=== PATIENT | female | born 2000 | race Caucasian/White ===

== ENCOUNTER 2025-03-20 00:14 | Emergency (ER) | payer OTHER, SELFPAY ==
--- NOTE | 2025-03-20 | ECG_ITS ---
Test Reason : dizziness Blood Pressure : */* mmHG Vent. Rate : 99 BPM Atrial Rate : 99 BPM P-R Int : 162 ms QRS Dur : 82 ms QT Int : 322 ms P-R-T Axes : 47 71 45 degrees QTcB Int : 413 ms Normal sinus rhythm Normal ECG No previous ECGs available Referred By: Generic ED Physician Electronically Signed By: MEENU JONES
[2025-03-20 00:19] VITALS: BP 132/84; PULSE 100; O2SAT 99
[2025-03-20 00:27] VITALS: BP 110/59; PULSE 99; RESP 20; TEMP 37.4; O2SAT 100; BMI 26.2
--- NOTE | 2025-03-20 00:35 | ED.SOB ---
HPI - SOB/Dyspnea General Chief Complaint: General Medical Stated Complaint: SOB Time Seen by Provider: 03/20/25 00:34 Source: patient Mode of arrival: ambulatory Limitations: no limitations History of Present Illness ED Provider: HPI Narrative: Patient otherwise healthy been working outside all day today in heat comes here with weakness nausea dizziness short of breath tiredness shivering denies any cough or cold symptoms also patient has had tattoo on her right forearm 2 days ago it is little erythematous and hot Related Data Previous Rx's ?Medication ?Instructions ?Recorded cefuroxime axetil 500 mg tablet 500 mg PO BID 7 days #14 tabs 03/20/25 ondansetron 4 mg disintegrating 4 mg PO Q6-8H PRN nausea and 03/20/25 tablet vomiting #7 tabs Allergies Allergy/AdvReac Type Severity Reaction Status Date / Time No Known Allergies Allergy Verified 03/20/25 00:34 Review of Systems Review of Systems: Yes all other systems are reviewed and are negative [facility] Social History Social History Smoked in Last 30 Days: No Use of substances other than those prescribed or required for medical reasons: No Advance Directives: No Advance Directives Information Provided: Yes Patient : No Physical Exam Vital Signs: Vital Signs: Last Vital Signs Temp 99.3 F 03/20/25 06:00 Pulse 92 03/20/25 06:00 Resp 14 03/20/25 06:00 BP 98/47 L 03/20/25 06:00 Pulse Ox 99 03/20/25 06:00 O2 Del Method Room Air 03/20/25 06:00 Oxygen Flow Rate 1 03/20/25 00:27 BMI result Body Mass Index 26.2 Appearance: Alert. Oriented X3. No acute distress. Eyes: PERRLA, No Nystagmus ENT: Pharynx normal. Oral Mucosa moist Neck: Normal inspection. Neck supple. CVS: Normal heart rate and rhythm. Pulses normal. Respiratory: No respiratory distress. Equal air entry bilateral, no wheezing/rales/rhonchi Abdomen: Soft and nontender. Bowel sounds are present, no mass palpable, no CVA tenderness Skin: Skin warm and dry. Right forearm with tattoos and erythema local no exudates no open woundsr. Normal skin turgor. Extremities: No lower extremity edema. No calf tenderness Neuro: Oriented X 3. No motor deficit. No sensory deficit.No cerebellar signs , cranial nerves II-XII intact Medications Administered Discontinued Medications Generic Name Dose Route Start Last Admin Trade Name Valerie PRN Reason Stop Dose Admin Acetaminophen 650 mg 03/20/25 01:13 03/20/25 01:17 Acetaminophen 325 Mg Tablet PO 03/20/25 01:14 650 mg ONCE ONE Administration Ceftriaxone Sodium 1 gm 03/20/25 03:27 03/20/25 03:48 Ceftriaxone Sodium 1 Gm Vial IVPUSH 03/20/25 03:28 1 gm ONCE ONE Administration Sodium Chloride 1,000 mls @ 999 mls/hr 03/20/25 01:04 03/20/25 02:31 Ns IV 03/20/25 02:04 Infused .Q1H1M ONE Infusion Sodium Chloride 1,000 mls @ 999 mls/hr 03/20/25 03:27 03/20/25 04:56 Ns IV 03/20/25 04:27 Infused .Q1H1M ONE Infusion Ondansetron HCl 4 mg 03/20/25 02:38 03/20/25 02:44 Ondansetron Hcl 4 Mg/2 Ml Vial IVPUSH 03/20/25 02:39 4 mg ONCE ONE Administration Medical Decision Making Medical Decision Making [facility] [place] Narrative: Patient's symptoms likely from heat exhaustion will give IV fluids check CPK other labs are normal Patient's lab showed elevated CPK of 619 urine showed WBCs also patient has tattoo on the right forearm which seems to slightly warmer will give IV Rocephin 2 L of IV fluids Lab Data [facility] [place] Lab Attestation statement: I reviewed the patient's lab results. 03/20/25 00:48 03/20/25 00:48 Labs: Lab Results 03/20/25 03/20/25 Range/Units 00:48 02:59 WBC 10.7 (4.8-10.8) X10*3/uL RBC 4.20 (4.20-5.50) X10*6/uL Hgb 13.6 (12.0-16.0) g/dl Hct 37.5 (37.0-47.0) % MCV 89.3 (80.0-98.0) fL MCH 32.4 (27.0-33.0) pg MCHC 36.3 H (31.0-35.0) g/dl RDW 10.6 L (11.0-16.0) % Plt Count 138 L (160-400) X10*3/uL MPV 10.4 (9.4-12.3) fL Immature Gran % (Auto) 0.4 (0.0-0.4) % Neut % (Auto) 94.1 H (45-73) % Lymph % (Auto) 2.2 L (20-40) % [place] % (Auto) 2.9 (2-11) % Eos % (Auto) 0.2 (0-4) % Baso % (Auto) 0.2 (0-2) % Lymph # (Auto) 0.2 L (1.2-4.9) X10*3/uL [place] # (Auto) 0.3 (0.1-1.2) X10*3/uL Eos # (Auto) 0.0 (0.0-0.4) X10*3/uL Baso # (Auto) 0.0 (0.0-0.2) X10*3/uL Abs Immat Gran (auto) 0.04 H (0.00-0.03) X10*3/uL Absolute Neuts (auto) 10.1 H (2.0-8.3) x10*3/uL Absolute Nucleated RBC 0.000 (0.0-0.012) X10*3/uL Nucleated RBC % (auto) 0.0 (0.0-0.2) /100WBC Smear Tech's Comments VERIFIED Sodium 141 (135-145) mmol/L Potassium 3.4 (3.3-5.1) mmol/L Chloride 107 (96-108) mmol/L Carbon Dioxide 24 (22-29) mmol/L Anion Gap 13 (12-20) BUN 20 H (9-16) mg/dL Creatinine 1.13 (0.5-1.4) mg/dL Estim Creat Clear Calc 92.0 Estimated GFR 59 Random Glucose 110 (60-115) mg/dL Calcium 9.5 (8.4-10.2) mg/dL Total Bilirubin 0.5 (0.0-1.0) mg/dL AST 41 H (5-31) U/L ALT 38 H (0-31) U/L Alkaline Phosphatase 51 (39-117) U/L Total Creatine Kinase 619 H (26-140) U/L Total Protein 7.0 (6.5-8.0) g/dL Albumin 4.4 (3.5-5.0) g/dL Lipase 24 (8-78) U/L Urine Color Yellow Urine Appearance Clear Urine pH >= 9.0 (5.0-9.0) Ur Specific [place] 1.025 (1.005-1.025) Urine Protein 30 (1+) H (Neg-Trace) mg/dL Urine Glucose (UA) Negative (Negative) mg/dL Urine Ketones 15 (Negative) mg/dL Urine Blood Negative (Negative) Urine Nitrite Negative (Negative) Ur Leukocyte Esterase Small (1+) H (Negative) Urine RBC 0-2 (0-2) /HPF Urine WBC 11-20 H (0-5) /HPF Ur Squamous Epith Cells 0-2 (0-2) /HPF Urine Bacteria 1+ (None Seen) Hyaline Casts 0-2 (0-2) /LPF Influenza Type A (PCR) NEGATIVE (Negative) Influenza Type B (PCR) NEGATIVE (Negative) RSV RNA Qual (PCR) NEGATIVE (Negative) SARS-CoV-2 RNA (RT-PCR) NEGATIVE (Negative) Discharge Plan Discharge Clinical Impression: Heat exhaustion, UTI (urinary tract infection), Cellulitis of right forearm Patient Disposition: Home, Self-Care Instructions: Urinary Tract Infection in Women (DC), Cellulitis (ED), Heat Exhaustion (ED) Additional Instructions: Drink plenty of fluids avoid staying in heat Take antibiotics as prescribed Medicine for nausea as prescribed Prescriptions: New cefuroxime axetil 500 mg tablet 500 mg PO BID 7 Days Qty: 14 0RF ondansetron 4 mg tablet,disintegrating 4 mg PO Q6-8H PRN (Reason: nausea and vomiting) Qty: 7 0RF Stand Alone Forms: Work/School Release Interventions: ED Discharge Assessment Last Done: 03/20/25 06:00 Discharge Date/Time: 03/20/25 06:12 Print Language: Latvian
[2025-03-20 00:55] VITALS: BP 110/59; PULSE 99; RESP 20; TEMP 37.4; O2SAT 100
[2025-03-20 00:55] LABS: Basophils Percent Auto 0.2 % (0-2); Eosinophils Percent Auto 0.2 % (0-4); Hematocrit 37.5 % (37.0-47.0); Hemoglobin 13.6 g/dl (12.0-16.0); Imm Gran Abs Auto 0.04 X10*3/uL (0.00-0.03); Imm Gran Pct Auto 0.4 % (0.0-0.4); Lymphocytes Absolute Auto 0.2 X10*3/uL (1.2-4.9); Lymphocytes Percent Auto 2.2 % (20-40); MANUAL DIFF FLAG SCAN; Mean Corpuscular HGB Conc 36.3 g/dl (31.0-35.0); Mean Corpuscular Hemoglobin 32.4 pg (27.0-33.0); Mean Corpuscular Volume 89.3 fL (80.0-98.0); Mean Platelet Volume 10.4 fL (9.4-12.3); Monocytes Absolute Auto 0.3 X10*3/uL (0.1-1.2); Monocytes Percent Auto 2.9 % (2-11); Neutrophils Absolute Auto 10.1 x10*3/uL (2.0-8.3); Neutrophils Percent Auto 94.1 % (45-73); Platelet Count 138 X10*3/uL (160-400); Red Cell Distribution Width 10.6 % (11.0-16.0); SCAN SMEAR FLAG 1; White Blood Count 10.7 X10*3/uL (4.8-10.8)
[2025-03-20] MEDS: 0.9 % Sodium Chloride 1,000 ML 999 ML IV ×2 (01:12→03:47)
[2025-03-20] MEDS: Acetaminophen 325 MG TABLET 650 MG PO (01:17)
[2025-03-20 01:19] LABS: Alanine Aminotransferase 38 U/L (0-31); Albumin Level 4.4 g/dL (3.5-5.0); Alkaline Phosphatase 51 U/L (39-117); Anion Gap 13 (12-20); Aspartate Amino Transferase 41 U/L (5-31); Bilirubin Total 0.5 mg/dL (0.0-1.0); Blood Urea Nitrogen 20 mg/dL (9-16); Calcium 9.5 mg/dL (8.4-10.2); Carbon Dioxide 24 mmol/L (22-29); Chloride 107 mmol/L (96-108); Estimated Glomerular Filt Rate 59; Glucose Random 110 mg/dL (60-115); Lipase 24 U/L (8-78); Potassium 3.4 mmol/L (3.3-5.1); Sodium 141 mmol/L (135-145)
[2025-03-20 01:31] LABS: Influenza A PCR NEGATIVE (Negative); Influenza B PCR NEGATIVE (Negative); Resp Syncy Virus RNA Qual PCR NEGATIVE (Negative); SARS COV2 PCR INHOUSE NEGATIVE (Negative)
[2025-03-20] MEDS: ondansetron HCL 4 MG/2 ML VIAL IVPUSH (02:44)
[2025-03-20 03:10] LABS: SLIDE REVIEW VERIFIED
--- NOTE | 2025-03-20 03:10 | PC.NURSE ---
pt vomited, feels better now
[2025-03-20 03:16] LABS: Appearance Urine Clear; Color Urine Yellow; Glucose Urine UA Negative (Negative); Leukocyte Esterase Urine Small (1+) (Negative); Nitrite Urine Negative (Negative); PH >= 9.0 (5.0-9.0); Specific Gravity - Urine 1.025 (1.005-1.025); UMIC TRIGGER UACC YES; Urine Blood Negative (Negative); Urine Ketones 15 mg/dL (Negative); Urine Protein 30 (1+) mg/dL (Neg-Trace)
[2025-03-20 03:21] LABS: Bacteria Urine 1+ (None Seen); Hyaline Casts Urine 0-2 /LPF (0-2); RBC Urine 0-2 /HPF (0-2); Squamous Epithelial Cell Urine 0-2 /HPF (0-2); UACC Culture Trigger YES
[2025-03-20 03:45] VITALS: BP 99/54; PULSE 96; RESP 14; TEMP 37.6; O2SAT 98
[2025-03-20] MEDS: cefTRIAXone sodium 1 GM VIAL IVPUSH (03:48)
[2025-03-20 05:31] VITALS: BP 98/47; PULSE 92; RESP 14; TEMP 37.4; O2SAT 99
[2025-03-20 06:00] VITALS: BP 98/47; PULSE 92; RESP 14; TEMP 37.4; O2SAT 99
== END 2025-03-20 06:12 | disposition home or self-care (01) ==
PROVIDERS: Emergency Provider Internal Medicine
DX: N39.0 Urinary tract infection, site not specified (principal); L03.113 Cellulitis of right upper limb; T67.5XXA Heat exhaustion, unspecified, initial encounter; X58.XXXA Exposure to other specified factors, initial encounter; Y93.9 Activity, unspecified; Y92.9 Unspecified place or not applicable; Y99.9 Unspecified external cause status; R42 Dizziness and giddiness; R53.1 Weakness; R11.0 Nausea; Z03.818 Encounter for observation for suspected exposure to other biological agents ruled out
CPT/HCPCS: 0241U; 36415; 80053; 81001; 82550; 83690; 85025; 87086; 93005; 96361; 96374; 96375; 99284; 99285; J0696; J2405

== ENCOUNTER → 2025-03-20 00:35 | Outpatient (BNV) | payer OTHER, SELFPAY | PROVIDERS: Emergency Provider Internal Medicine; Visit Provider Internal Medicine | DX: R42 Dizziness and giddiness (principal) | CPT/HCPCS: 93010 ==